=== PATIENT | male | born 1975 | race Caucasian/White ===

== ENCOUNTER → 2024-07-23 | Outpatient (REF) ==
[~2024-07-23] MED LIST: DOCU10CA PO; HYDR-3713 PO; NAPR-885 PO; PERC5TAB12 PO
== END ==
LOC: M PLAIMG 10:34
PROVIDERS: ATTEND Internal Medicine
DX: Z00.00 Encounter for general adult medical examination without abnormal findings (principal)

== ENCOUNTER 2024-09-29 09:44 | Emergency (ER) | payer MEDICAID, MEDICARE, OTHER ==
[~2024-09-29] VITALS: Ht 172.7 cm; Wt 141.2 kg
[2024-09-29] MEDS ORDERED: ROPI2TAB24 PO (10:49)
[2024-09-29 11:41] VITALS: BP 140/81; TEMP 97.8; O2SAT 96
[2024-09-29] MEDS ORDERED: [UNRECOGNIZED DRUG - SUPPLY] TOP (11:46)
== END 2024-09-29 12:16 | disposition home or self-care (01) ==
LOC: M ED 09:44
DX: M72.2 Plantar fascial fibromatosis (principal); F10.10 Alcohol abuse, uncomplicated; Z91.030 Bee allergy status; Z79.899 Other long term (current) drug therapy

== ENCOUNTER 2025-06-04 10:49 | Emergency (ER) | payer OTHER ==
[~2025-06-04] VITALS: Ht 172.7 cm; Wt 133.8 kg
[~2025-06-04 10:49] MED LIST changes: +ROPI2TAB24 PO; +[UNRECOGNIZED DRUG - SUPPLY] TOP
[2025-06-04 12:32] LABS: BASO # 0.1 10^3/uL (0.0-0.2); BASO % 1.0 % (0.0-1.0); EOS # 0.4 10^3/uL (0.0-0.5); EOS % 3.9 % (0.0-3.0); LYMPH # 3.0 10^3/uL (1.5-5.0); LYMPH % 33.0 % (24.0-44.0); MONO # 0.9 10^3/uL (0.0-0.8); MONO % 10.5 % (2.0-8.0); NEUTROPHILS # 4.6 10^3/uL (1.5-8.5); NEUTROPHILS % 51.2 % (36.0-66.0); PLATELET COUNT, AUTOMATED 244 10^3/uL (150-450)
[2025-06-04 12:33] LABS: KETONE, URINE AUTO RFX NEGATIVE (NEGATIVE); LEUKOCYTE ESTERASE UR AUTO RFX NEGATIVE (NEGATIVE); MUCUS, URINE RFX SMALL (NEGATIVE); NITRITE, URINE AUTO RFX NEGATIVE (NEGATIVE); RBC, URINE AUTO RFX 0 /HPF (0-3); SQUAM EPITHELIAL CELL UR AURFX 0 /HPF (0-6); WBC, URINE AUTO RFX 0 /HPF (0-3)
[2025-06-04 13:06] LABS: ALT/SGPT 21.0 U/L (7.0-40); AST/SGOT 27.0 U/L (<34); CALCIUM LEVEL 8.5 MG/DL (8.5-10.1); CARBON DIOXIDE LEVEL 28.0 MMOL/L (20-31); CHLORIDE LEVEL 105.0 MMOL/L (98-107); CREATININE FOR GFR 1.02 MG/DL (0.70-1.30); GLOMERULAR FILTRATION RATE 89.5 (>56); POTASSIUM SERUM 4.3 MMOL/L (3.5-5.1); SODIUM LEVEL 143.0 MMOL/L (136-145)
[2025-06-04] MEDS: MORPHINE 2 MG/ML 1 ML VIAL IV STA (15:00)
[2025-06-04] MEDS ORDERED: KETO-204 PO (17:14)
[2025-06-04 17:24] VITALS: BP 157/78; TEMP 96.7; O2SAT 98
== END 2025-06-04 17:29 | disposition home or self-care (01) ==
LOC: M ED 10:49 → EDBD 10:49 → M ED 17:29
DX: N20.0 Calculus of kidney (principal); I10 Essential (primary) hypertension; Z91.030 Bee allergy status; Z79.2 Long term (current) use of antibiotics; Z79.899 Other long term (current) drug therapy